=== PATIENT | male | born 1985 | race Caucasian/White ===

== ENCOUNTER → 2023-01-16 14:13 | Outpatient (CLI) | payer MEDICARE, MEDICAID, SELFPAY ==
--- NOTE | 2023-01-16 14:25 | US_ITS ---
FINAL REPORT CLINICAL HISTORY: DISORDER OF THE MALE GENITAL FINDINGS: Technique: Ultrasound images of the testicles were obtained. Findings: The right testicle appears to be in the inguinal canal and measures 4.7 x 1.1 x 1.8 cm. The left testicle measures 4.7 x 2.1 x 4.1 cm. There is a right epididymal cyst. There is a large collection comprising most of the scrotum likely representing a hydrocele or less likely spermatocele. IMPRESSION: Undescended right testicle. No torsion or intratesticular mass. Large hydrocele or less likely spermatocele. Reviewed, Interpreted and Dictated by Stacey Lal MD Transcribed by Adbi Wallace Authenticated and . [facility]
== END ==
PROVIDERS: PCP Pediatrics; Visit Provider Pediatrics
DX: N50.89 Other specified disorders of the male genital organs (principal)
CPT/HCPCS: 76870

== ENCOUNTER 2024-06-12 15:07 | Outpatient (CLI) | payer MEDICARE, MEDICAID, SELFPAY ==
[2024-06-12 21:10] LABS: Coronavirus 19, PCR Not Detected (NotDetected); Human Rhinovirus Not Detected (NotDetected); Influenza A, PCR Not Detected (NotDetected); Influenza B, PCR Not Detected (NotDetected); Respiratory Syncytial Virus Not Detected (NotDetected)
== END 2024-06-12 23:59 | disposition home or self-care (01) ==
LOC: LAB.DROPOF 06-13 04:07
PROVIDERS: PCP Nurse Practitioner; Visit Provider Nurse Practitioner
DX: R05.9 Cough, unspecified (principal); R50.9 Fever, unspecified
CPT/HCPCS: 87631